=== PATIENT | female | born 1975 | race Two or more races ===

== ENCOUNTER → 2016-12-02 | Outpatient (CLI) | payer OTHER ==
--- NOTE | ~2016-12-02 | ST ---
Unit #: [id number] #: [id number] Patient: BALAJI ENGLISH I [id number] [address] [address] [id number] O MR#: [id number] NAME: BALAJI ENGLISH I. : 1975 SEX: F STUDY DATE/TIME: UNIT: [facility] ROOM: STUDY DESCRIPTION: Stress Test Attending Physician: Smitha Ulloa M.D. Referring Physician: Smitha Ulloa M.D. Primary Care Physician: Janette Andrade A.P.R.N. CARDIOLOGY REPORT EXAM Exercise Cardiolite Stress Test DESCRIPTION Baseline EKG - normal sinus rhythm with ventricular rate 75 beats per minute, RSR1 prime noted in inferior leads. The patient walked on the treadmill for 7 minutes utilizing Macario protocol achieving a workload of 8.60 METs. 103% of maximum target heart rate achieved at 187 beats per minute with a maximum blood pressure response of 160/82 mmHg. EKG during the test revealed 1.[address] depression, T wave inversion in inferior leads and nonspecific ST-T wave abnormalities in lateral leads. The patient had no complaints of chest pain, palpitations or dizziness. Had increased shortness of breath and fatigueness which resolved in recovery phase. IMPRESSION 1. Functional class 3 with a workload of 8.60 METs. 2. The patient walked for 7 minutes achieving 103% of maximum target heart rate at 187 beats per minute with a maximum blood pressure response of 160/82 mmHg. 3. EKG during the test showed some T wave inversion in inferior leads with some 0.[address] depression in inferior leads with some nonspecific ST-T wave abnormalities in lateral leads. 4. Cardiolite was injected at maximum target heart rate. Radionuclide test pending. Please correlate with nuclear images. Dictated by... Maryse Calhoun.P.RAlexNAlex for Patricia Gallagher/christin TD: 12/02/2016 11:13 JOB #: [id number] Unit #: [id number] #: [id number] Patient: BALAJI ENGLISH I CARDIOLOGY REPORT X Beth Ruvalcaba APRN CARDIOLOGY REPORT
--- NOTE | ~2016-12-02 | TH ---
Unit #: [id number] #: [id number] Patient: BALAJI ENGLISH I [id number] [address] [address] [id number] O MR#: [id number] NAME: BALAJI ENGLISH I. : 1975 SEX: F STUDY DATE/TIME: 12/02/2016 UNIT: [facility] ROOM: STUDY DESCRIPTION: Attending Physician: Smitha Ulloa M.D. Referring Physician: Smitha Ulloa M.D. Primary Care Physician: Janette Andrade CARDIOLOGY REPORT EXAM Exercise Cardiolite stress test, nuclear portion. PROCEDURE Using technetium 99m labeled Cardiolite, rest and stress SPECT images were obtained. Multiple SPECT images were obtained in various views including horizontal and vertical long axis and short axis views of the left ventricle. Images were obtained by gated SPECT method. The patient was administered 11.24 mCi of Cardiolite at rest. The patient was administered 34.2 mCi of Cardiolite at peak exercise. Total exercise time is 7 minutes. On the stress images, there is normal perfusion noted. The rest images show normal perfusion. Comparing rest and stress images, there is no stress-induced ischemia noted. The left ventricular ejection fraction is calculated to be 61%. There is no focal wall motion abnormality seen. CONCLUSION 1. No stress-induced ischemia noted. 2. The left ventricular ejection fraction is calculated to be 61%. 3. There is no focal wall motion abnormality seen. 4. Normal exercise Cardiolite stress test. 5. Technically limited study due to patient's body habitus. 6. Clinical correlation is requested. Dictated by... Patricia Gallagher TD: 12/02/2016 14:50 JOB #: [id number] Unit #: [id number] #: [id number] Patient: BALAJI ENGLISH I CARDIOLOGY REPORT X Smitha Ulloa MD <ELECTRONICALLY SIGNED> 04/22/17 1428 CARDIOLOGY REPORT
== END | disposition home or self-care (01) ==
LOC: CNUC 08:17
DX: R07.9 Chest pain, unspecified (principal)
CPT/HCPCS: 78452; 93017; A9500